=== PATIENT | male | born 1975 | race Caucasian/White ===

== ENCOUNTER 2024-04-02 17:08 | Inpatient (IN) | payer MEDICAID ==
[~2024-04-02] VITALS: Ht 167.6 cm; Wt 75.7 kg
[2024-04-02] MEDS: IV NS 0.9% 1,000 ML BAG IV ONE ×2 (17:30→18:00)
[2024-04-02 17:42] LABS: HEMOGLOBIN 11.1 g/dL (13.5-17.5); LYMPHOCYTES # (AUTO) 0.2 K/uL (0.8-4.8); MONOCYTES # (AUTO) 1.2 K/uL (0.1-1.30); NEUTROPHILS # (AUTO) 15.9 K/uL (1.8-8.9); WHITE BLOOD COUNT (AUTO) 17.4 K/uL (4.3-11.0)
[2024-04-02] MEDS ORDERED: OLANZAPINE 5 MG TABLET ONE (17:43)
[2024-04-02 17:48] LABS: BASOPHILS % (AUTO) 0.2 % (0.0-2.0); EOSINOPHILS # (AUTO) 0.1 K/uL (0.0-0.7); EOSINOPHILS % (AUTO) 0.6 % (0.0-6.0); HEMATOCRIT 32 % (39-51); LYMPHOCYTES % (AUTO) 1.3 % (20.0-44.0); MEAN CORPUSCULAR HEMOGLOBIN 27 PG (26.0-33.0); MEAN CORPUSCULAR HGB CONC 34 g/dl (31.0-36.0); MEAN CORPUSCULAR VOLUME 78 fL (80-96); MONOCYTES % (AUTO) 6.9 % (2.0-12.0); PLATELET COUNT (AUTO) 76 K/uL (150-450); RED BLOOD CELL COUNT(AUTO) 4.17 MIL/uL (4.5-6.0); RED CELL DISTRIBUTION WIDTH 18.9 % (11.5-15.0)
[2024-04-02 17:54] LABS: ALANINE AMINOTRANSFERASE 98 U/L (12-78); ALBUMIN 2.6 g/dL (3.4-5.0); ALCOHOL, BLOOD < 3 mg/dL (0-10); ALKALINE PHOSPHATASE 110 U/L (46-116); ASPARTATE AMINOTRANSFERASE 389 U/L (15-37); BILIRUBIN,DIRECT 2.1 mg/dL (0.0-0.2); BILIRUBIN,TOTAL 3.4 mg/dL (0.2-1.0); CALCIUM, SERUM 8.6 mg/dL (8.5-10.1); CARBON DIOXIDE 17 mmol/L (21-32); CREATININE 3.2 mg/dL (0.6-1.3); GLUCOSE 95 mg/dL (74-106); TOTAL PROTEIN, SERUM 8.5 g/dL (6.4-8.2); UREA NITROGEN, BLOOD 28 mg/dL (7-18)
[2024-04-02] MEDS: OLANZAPINE ZYDIS 5 MG TAB.RAPDIS PO ONE (18:00)
[2024-04-02 18:05] LABS: ACETAMINOPHEN <10 ug/ml (10-30); CHLORIDE 80 mmol/L (98-107); SALICYLATE < 2.3 mg/dL (2.8-20.0)
[2024-04-02 18:07] LABS: POTASSIUM 2.5 mmol/L (3.5-5.1); SODIUM SERUM 117 mmol/L (136-145)
[2024-04-02 18:08] LABS: ANISOCYTOSIS 1+; BAND % (MANUAL) 8 % (0.0-5.0); BASOPHILS % (MANUAL) 0 % (0.0-2.0); EOSINOPHILS % (MANUAL) 0 % (0-4); LYMPHOCYTES % (MANUAL) 3 % (16-48); METAMYELOCYTES % 1 % (0-0); MONOCYTES % (MANUAL) 7 % (0-11.0); MYELOCYTES % 1 % (0-0); NEUTROPHILS % (MANUAL) 80 (42-76); PLATELET ESTIMATE DECREASED; REACTIVE LYMPHOCYTES 0 % (0-0)
[2024-04-02] MEDS ORDERED: POTASSIUM CHLORIDE 20 MEQ TAB.PRT.SR PO ONE (18:21)
[2024-04-02] MEDS: POTASSIUM CHLORIDE 20 MEQ TAB.PRT.SR PO ONE (18:26)
[2024-04-02 18:32] LABS: APPEARANCE,URINE Cloudy (CLEAR); BILIRUBIN,URINE MODERATE (NEGATIVE); BLOOD, URINE Large Ery/uL (NEGATIVE); COLOR,URINE DARK YELLOW (YELLOW); KETONES,URINE 15 mg/dL (NEGATIVE); LEUKOCYTE ESTERASE ,URINE Negative (NEGATIVE); NITRITE, URINE Negative (NEGATIVE); PROTEIN,URINE >=300 mg/dl (NEGATIVE); UGLUCOSE Negative (NEGATIVE)
[2024-04-02] MEDS: IV PREMIX 0.45% NS + KCL 1,000 ML IV ONE (18:35)
[2024-04-02 18:46] LABS: ADD URINE CULTURE NO; AMPHETAMINE, URINE NEGATIVE (NEGATIVE); BACTERIA,URINE 1+ /HPF (None Seen); BARBITURATE, URINE NEGATIVE (NEGATIVE); BENZODIAZEPINE, URINE NEGATIVE (NEGATIVE); CANNABINOID, URINE NEGATIVE (NEGATIVE); COCCAINE, URINE NEGATIVE (NEGATIVE); OPIATE, URINE NEGATIVE (NEGATIVE); PHENCYCLIDINE SCREEN,URINE NEGATIVE (NEGATIVE); SQUAMOUS EPITHELIAL CELL,UR Few /HPF (None Seen); WBC,URINE 0-2 /HPF (0-3)
[2024-04-02 18:47] LABS: COARSE GRANULAR CASTS,URINE Moderate /LPF (None Seen)
[2024-04-02 18:48] LABS: URINE AMORPHOUS URATE Moderate /HPF (None Seen)
[2024-04-02] MEDS ORDERED: Z GUARD REMEDY 4 OZ OINT TP PRN (20:00)
[2024-04-02] MEDS ORDERED: ONDANSETRON HCL/PF 4 MG/2 ML VIAL IVP PRN (20:00)
[2024-04-02] MEDS ORDERED: LORAZEPAM INJ 2 MG/ML VIAL IV PRN (20:00)
[2024-04-02] MEDS ORDERED: MAGNESIUM HYDROXIDE 30 ML UDC PO PRN (20:00)
[2024-04-02] MEDS ORDERED: MAG HYDROX/AL HYDROX/SIMETH 30 ML UDC PO PRN (20:00)
[2024-04-03] VITALS (62 sets, daily range): BP systolic 47–163; BP diastolic 28–112; TEMP 98.1–102.9; O2SAT 86–100
[2024-04-03] MEDS: ACETAMINOPHEN 325 MG TABLET PO PRN (03:27)
[2024-04-03] MEDS: IV NS 0.9% 1,000 ML IV PRN (03:42)
[2024-04-03] MEDS: CEFTRIAXONE 1GM BAG (ER ONLY) 50 ML IV ONE (03:46)
[2024-04-03] MEDS: CEFTRIAXONE 1 G in IV D5W 50 ML IV SCH (03:49)
[2024-04-03] MEDS: ENOXAPARIN SODIUM 40 MG/0.4 ML DISP.SYRIN SQ SCH (04:04)
[2024-04-03] MEDS ORDERED: IV NS 0.9% 1,000 ML IV PRN (08:21)
[2024-04-03 08:36] LABS: CALCIUM, SERUM 7.3 mg/dL (8.5-10.1); CREATININE 3.7 mg/dL (0.6-1.3); MAGNESIUM 2.6 mg/dL (1.8-2.4); PHOSPHORUS 5.1 mg/dL (2.5-4.9)
[2024-04-03 08:37] LABS: EOSINOPHILS % (AUTO) 0.1 % (0.0-6.0); HEMATOCRIT 29 % (39-51); HEMOGLOBIN 9.9 g/dL (13.5-17.5); LYMPHOCYTES # (AUTO) 0.2 K/uL (0.8-4.8); LYMPHOCYTES % (AUTO) 2.2 % (20.0-44.0); MEAN CORPUSCULAR HEMOGLOBIN 27 PG (26.0-33.0); MEAN CORPUSCULAR HGB CONC 35 g/dl (31.0-36.0); MEAN CORPUSCULAR VOLUME 78 fL (80-96); MONOCYTES # (AUTO) 0.8 K/uL (0.1-1.30); MONOCYTES % (AUTO) 7.6 % (2.0-12.0); NEUTROPHILS # (AUTO) 9.3 K/uL (1.8-8.9); NEUTROPHILS % (AUTO) 90.1 % (43.0-81.0); PLATELET COUNT (AUTO) 52 K/uL (150-450); RED BLOOD CELL COUNT(AUTO) 3.66 MIL/uL (4.5-6.0); RED CELL DISTRIBUTION WIDTH 18.8 % (11.5-15.0); URIC ACID 13.6 mg/dL (2.6-7.2); WHITE BLOOD COUNT (AUTO) 10.3 K/uL (4.3-11.0)
[2024-04-03 09:03] LABS: POTASSIUM 2.6 mmol/L (3.5-5.1)
[2024-04-03] MEDS: PANTOPRAZOLE 40 MG VIAL IV SCH (09:28)
[2024-04-03] MEDS ORDERED: LORAZEPAM 1 MG TABLET PO PRN ×2 (09:30)
[2024-04-03] MEDS: POTASSIUM CHLORIDE 20 MEQ TAB.PRT.SR PO ONE (09:32)
[2024-04-03 10:24] LABS: BAND % (MANUAL) 1 % (0.0-5.0); LYMPHOCYTES % (MANUAL) 3 % (16-48); MONOCYTES % (MANUAL) 8 % (0-11.0); NEUTROPHILS % (MANUAL) 88 (42-76)
[2024-04-03 10:25] LABS: ANISOCYTOSIS 1+; PLATELET ESTIMATE DECREASED
[2024-04-03] MEDS ORDERED: IPRATROPIUM NEB FS 0.5 MG/2.5 ML AMPUL.NEB NEB PRN (12:00)
[2024-04-03] MEDS ORDERED: ALBUTEROL FS 2.5 MG/3 ML VIAL.NEB NEB PRN (12:00)
[2024-04-03] MEDS ORDERED: NOREPINEPHRINE 8 MG in IV D5W 242 ML IV PRN (12:30)
[2024-04-03] MEDS: NOREPINEPHRINE 8 MG in IV D5W 242 ML IV PRN (12:45)
[2024-04-03 13:09] LABS: CALCIUM, SERUM 8.2 mg/dL (8.5-10.1); CREATININE 4.8 mg/dL (0.6-1.3); POTASSIUM 3.4 mmol/L (3.5-5.1)
[2024-04-03] MEDS: CEFEPIME 1 GM in IV D5W 50 ML IV SCH (13:13)
[2024-04-03] MEDS: VANCOMYCIN 1 GM in IV D5W 250 ML IV ONE (13:35)
[2024-04-03] MEDS: FENTANYL CITRAT IV 2,500 MCG in IV NS 0.9% 200 ML IV PRN (13:38)
[2024-04-03] MEDS: IV LR 1000 ML 1,000 ML IV ONE (13:45)
[2024-04-03] MEDS ORDERED: EPINEPHRINE (1:10,000) SYRINGE 1 MG/10 ML DISP.SYRIN IVP ONE (13:47)
[2024-04-03 13:53] LABS: INR 1.51 (0.91-1.10); PROTHROMBIN TIME 15.6 SECS (9.2-11.1)
[2024-04-03] MEDS: ALBUTEROL FS 2.5 MG/3 ML VIAL.NEB NEB SCH (14:12)
[2024-04-03] MEDS: IPRATROPIUM NEB FS 0.5 MG/2.5 ML AMPUL.NEB NEB SCH (14:12)
[2024-04-03 14:40] LABS: ABG BASE EXCESS -15.4 mmol/L (-2.0-3.0); ABG OXYGEN SATURATION 97.3 % (94.0-98.0); ABG PCO2 33.5 mmHg (35.0-48.0); ABG PH 7.172 (7.350-7.450); ABG PO2 114.7 mmHg (83.0-108.0); ABG TOTAL HEMOGLOBIN 11.1 G/dL (13.5-17.5); COHb 0.3 % (0.5-1.5); MetHb 0.5 % (0.0-1.5); O2Hb 96.5 % (94.0-97.0); SITE, ABG RIGHT FEMORAL; VT, ABG 500 mL
[2024-04-03] MEDS ORDERED: Sodium Bicarbonate 150 MEQ in IV D5W 1,000 ML IV PRN (15:00)
[2024-04-03] MEDS: Sodium Bicarbonate 150 MEQ in IV D5W 1,000 ML IV SCH (15:33)
[2024-04-03] MEDS: PROPOFOL 100 ML IV PRN (17:35)
[2024-04-03] MEDS: ACETAMINOPHEN 650 MG/SUPP.RECT RC PRN (20:15)
[2024-04-03] MEDS: NOREPINEPHRINE 8MG/250ML RTU 250 ML IV ONE (20:25)
[2024-04-03 23:28] LABS: BASOPHILS # (AUTO) 0.1 K/uL (0.0-0.2); BASOPHILS % (AUTO) 0.5 % (0.0-2.0); EOSINOPHILS # (AUTO) 0.6 K/uL (0.0-0.7); EOSINOPHILS % (AUTO) 5.1 % (0.0-6.0); HEMATOCRIT 31 % (39-51); HEMOGLOBIN 10.2 g/dL (13.5-17.5); LYMPHOCYTES # (AUTO) 0.3 K/uL (0.8-4.8); MEAN CORPUSCULAR HEMOGLOBIN 26 PG (26.0-33.0); MEAN CORPUSCULAR HGB CONC 33 g/dl (31.0-36.0); MEAN CORPUSCULAR VOLUME 79 fL (80-96); MONOCYTES # (AUTO) 0.6 K/uL (0.1-1.30); MONOCYTES % (AUTO) 5.2 % (2.0-12.0); NEUTROPHILS # (AUTO) 9.8 K/uL (1.8-8.9); NEUTROPHILS % (AUTO) 86.2 % (43.0-81.0); PLATELET COUNT (AUTO) 59 K/uL (150-450); RED BLOOD CELL COUNT(AUTO) 3.91 MIL/uL (4.5-6.0); WHITE BLOOD COUNT (AUTO) 11.3 K/uL (4.3-11.0)
[2024-04-03 23:38] LABS: APPEARANCE,URINE CLOUDY (CLEAR); BILIRUBIN,URINE 1+ (NEGATIVE); BLOOD, URINE 3+ Ery/uL (NEGATIVE); COLOR,URINE DARK YELLOW (YELLOW); KETONES,URINE TRACE mg/dL (NEGATIVE); LEUKOCYTE ESTERASE ,URINE NEGATIVE (NEGATIVE); NITRITE, URINE NEGATIVE (NEGATIVE); PH,URINE 5.5 (5.0-8.0); PROTEIN,URINE 2+ mg/dl (NEGATIVE); UGLUCOSE TRACE mg/dL (NEGATIVE); UROBILINOGEN,URINE 0.2 EU/dL (0.2)
[2024-04-03 23:40] LABS: ALBUMIN 1.5 g/dL (3.4-5.0); BILIRUBIN,TOTAL 4.4 mg/dL (0.2-1.0); CREATININE 5.2 mg/dL (0.6-1.3); MAGNESIUM 2.2 mg/dL (1.8-2.4); PHOSPHORUS 6.4 mg/dL (2.5-4.9); POTASSIUM 3.1 mmol/L (3.5-5.1); TOTAL PROTEIN, SERUM 6.3 g/dL (6.4-8.2)
[2024-04-03 23:45] LABS: CALCIUM, SERUM 6.9 mg/dL (8.5-10.1)
[2024-04-03 23:51] LABS: CREATININE, URINE 195.3 MG/DL (30.0-125.0); URINE TOTAL PROTEIN 421.4 mg/dL (0-11.9)
[2024-04-03 23:57] LABS: ADD URINE CULTURE NO; BACTERIA,URINE Rare /HPF (None Seen); RBC,URINE 0-2 /HPF (0-2); SQUAMOUS EPITHELIAL CELL,UR Moderate /HPF (None Seen)
[2024-04-03 23:58] LABS: URINE AMORPHOUS URATE Moderate /HPF (None Seen)
[2024-04-03 23:59] LABS: FINE GRANULAR CASTS,URINE Few /LPF (None Seen)
[2024-04-04] VITALS (96 sets, daily range): BP systolic 98–120; BP diastolic 46–73; TEMP 97–99; O2SAT 97–100
[2024-04-04 00:43] LABS: EOSINOPHIL,URINE None Seen
[2024-04-04 01:51] LABS: LYMPHOCYTES % (MANUAL) 6 % (16-48); MONOCYTES % (MANUAL) 4 % (0-11.0); NEUTROPHILS % (MANUAL) 89 (42-76)
[2024-04-04 01:52] LABS: ANISOCYTOSIS 1+; HYPOCHROMASIA 1+; PLATELET ESTIMATE DECREASED; REACTIVE LYMPHOCYTES 1 % (0-0)
[2024-04-04 04:44] LABS: HEMOGLOBIN 9.4 g/dL (13.5-17.5); LYMPHOCYTES # (AUTO) 0.3 K/uL (0.8-4.8); RED CELL DISTRIBUTION WIDTH 19.3 % (11.5-15.0); WHITE BLOOD COUNT (AUTO) 12.8 K/uL (4.3-11.0)
[2024-04-04 05:00] LABS: BILIRUBIN,TOTAL 4.5 mg/dL (0.2-1.0); CALCIUM, SERUM 6.6 mg/dL (8.5-10.1); CREATININE 5.4 mg/dL (0.6-1.3); MAGNESIUM 2.3 mg/dL (1.8-2.4); PHOSPHORUS 7.2 mg/dL (2.5-4.9)
[2024-04-04 05:09] LABS: ALBUMIN 1.4 g/dL (3.4-5.0)
[2024-04-04 05:19] LABS: BASOPHILS % (AUTO) 0.2 % (0.0-2.0); EOSINOPHILS # (AUTO) 0.3 K/uL (0.0-0.7); EOSINOPHILS % (AUTO) 2.6 % (0.0-6.0); HEMATOCRIT 28 % (39-51); LYMPHOCYTES % (AUTO) 2.3 % (20.0-44.0); MEAN CORPUSCULAR HEMOGLOBIN 26 PG (26.0-33.0); MEAN CORPUSCULAR HGB CONC 34 g/dl (31.0-36.0); MEAN CORPUSCULAR VOLUME 77 fL (80-96); MONOCYTES # (AUTO) 0.9 K/uL (0.1-1.30); MONOCYTES % (AUTO) 7.1 % (2.0-12.0); NEUTROPHILS # (AUTO) 11.2 K/uL (1.8-8.9); NEUTROPHILS % (AUTO) 87.8 % (43.0-81.0); RED BLOOD CELL COUNT(AUTO) 3.58 MIL/uL (4.5-6.0)
[2024-04-04 05:24] LABS: PLATELET COUNT (AUTO) 47 K/uL (150-450)
[2024-04-04 05:57] LABS: ANISOCYTOSIS 1+; BAND % (MANUAL) 3 % (0.0-5.0); HYPOCHROMASIA 1+; LYMPHOCYTES % (MANUAL) 2 % (16-48); MONOCYTES % (MANUAL) 6 % (0-11.0); NEUTROPHILS % (MANUAL) 89 (42-76); PLATELET ESTIMATE DECREASED
[2024-04-04 08:48] LABS: ABG BASE EXCESS -8.8 mmol/L (-2.0-3.0); ABG PCO2 26.1 mmHg (35.0-48.0); ABG PH 7.378 (7.350-7.450); ABG PO2 201.7 mmHg (83.0-108.0); ABG TOTAL HEMOGLOBIN 10.5 G/dL (13.5-17.5); COHb 0.3 % (0.5-1.5); MetHb 0.2 % (0.0-1.5); O2Hb 98.5 % (94.0-97.0); SITE, ABG RIGHT RADIAL; VT, ABG 500 mL
[2024-04-04] MEDS: THIAMINE HCL 100 MG TABLET PO SCH (09:00)
[2024-04-04] MEDS ORDERED: HEPARIN SODIUM, PORCINE 5000 UNITS/1 ML VIAL SQ SCH (09:00)
[2024-04-04] MEDS: Sodium Bicarbonate 150 MEQ in IV D5W 1,000 ML IV SCH (09:09)
[2024-04-04] MEDS: PHENYLEPHRINE 50 MG in IV NS 0.9% 245 ML IV PRN (10:55)
[2024-04-04] MEDS ORDERED: VANCOMYCIN 750 MG in IV D5W 250 ML IV SCH (12:00)
[2024-04-04 21:41] LABS: HIV-1 p24 ANTIGEN NON REACTIVE (NONREACTIVE); HIV-1/2 ANTIBODY NON REACTIVE (NONREACTIVE)
[2024-04-05] VITALS (95 sets, daily range): BP systolic 71–119; BP diastolic 37–65; TEMP 98.9–102.3; O2SAT 91–100
[2024-04-05] MEDS: VANCOMYCIN POST DIALYSIS 500MG IV PRN (01:23)
[2024-04-05] MEDS ORDERED: NS 0.9% IV PRN (03:00)
[2024-04-05] MEDS ORDERED: FENTANYL CITRAT IV PRN (03:00)
[2024-04-05] MEDS: FENTANYL CITRAT IV PRN (03:10)
[2024-04-05] MEDS: NS 0.9% IV PRN (03:10)
[2024-04-05] MEDS: FENTANYL PF 100MCG/2ML AMPUL ONE ×2 (03:29→03:30)
[2024-04-05 04:56] LABS: BASOPHILS % (AUTO) 0.2 % (0.0-2.0); EOSINOPHILS # (AUTO) 0.3 K/uL (0.0-0.7); HEMATOCRIT 25 % (39-51); LYMPHOCYTES # (AUTO) 0.3 K/uL (0.8-4.8); MEAN CORPUSCULAR HEMOGLOBIN 27 PG (26.0-33.0); MEAN CORPUSCULAR HGB CONC 36 g/dl (31.0-36.0); MEAN CORPUSCULAR VOLUME 77 fL (80-96); MONOCYTES # (AUTO) 0.7 K/uL (0.1-1.30); MONOCYTES % (AUTO) 4.5 % (2.0-12.0); NEUTROPHILS # (AUTO) 13.4 K/uL (1.8-8.9); NEUTROPHILS % (AUTO) 91.3 % (43.0-81.0); RED CELL DISTRIBUTION WIDTH 19.5 % (11.5-15.0); WHITE BLOOD COUNT (AUTO) 14.7 K/uL (4.3-11.0)
[2024-04-05 05:01] LABS: PLATELET COUNT (AUTO) 41 K/uL (150-450)
[2024-04-05 05:05] LABS: CALCIUM, SERUM 6.1 mg/dL (8.5-10.1); CREATININE 3.9 mg/dL (0.6-1.3); POTASSIUM 3.1 mmol/L (3.5-5.1)
[2024-04-05 05:19] LABS: ANISOCYTOSIS 1+; EOSINOPHILS % (MANUAL) 2 % (0-4); HYPOCHROMASIA 1+; LYMPHOCYTES % (MANUAL) 5 % (16-48); MONOCYTES % (MANUAL) 1 % (0-11.0); NEUTROPHILS % (MANUAL) 92 (42-76); PLATELET ESTIMATE DECREASED
[2024-04-05 08:32] LABS: ABG BASE EXCESS 0.4 mmol/L (-2.0-3.0); ABG OXYGEN SATURATION 96.7 % (94.0-98.0); ABG PCO2 38.5 mmHg (35.0-48.0); ABG PH 7.425 (7.350-7.450); ABG TOTAL HEMOGLOBIN 10.1 G/dL (13.5-17.5); COHb 0.2 % (0.5-1.5); MetHb 0.5 % (0.0-1.5); SITE, ABG RIGHT RADIAL; VT, ABG 500 mL
[2024-04-05] MEDS ORDERED: PRECEDEX 400 MCG/100 ML BOTTLE 100 ML IV PRN (10:00)
[2024-04-05 11:10] LABS: PTH, INTACT 237 pg/mL (15-65)
[2024-04-05 13:13] LABS: ABG BASE EXCESS -2.3 mmol/L (-2.0-3.0); ABG OXYGEN SATURATION 89.1 % (94.0-98.0); ABG PCO2 70.7 mmHg (35.0-48.0); ABG PH 7.197 (7.350-7.450); ABG PO2 71.4 mmHg (83.0-108.0); ABG TOTAL HEMOGLOBIN 11.1 G/dL (13.5-17.5); COHb 0.3 % (0.5-1.5); MetHb 0.3 % (0.0-1.5); O2Hb 88.6 % (94.0-97.0); PEEP,BG 5 cm H2O; SITE, ABG RIGHT RADIAL; VT, ABG 400 mL
[2024-04-05] MEDS: IV NS 0.9% 250 ML IV PRN (13:35)
[2024-04-05] MEDS ORDERED: JEVITY 1.5 CAL LIQUID 1,000 ML BOTTLE GT PRN (14:00)
[2024-04-06] VITALS (46 sets, daily range): BP systolic 86–134; BP diastolic 42–102; TEMP 97.9–101.4; O2SAT 95–100
[2024-04-06 02:08] LABS: HEPATITIS A AB, IgM Negative (Negative); HEPATITIS A AB, TOTAL Positive (Negative); HEPATITIS B SURFACE AB Non Reactive (.)
[2024-04-06] MEDS: VANCOMYCIN 1 GM /D5W 250 ML PB IV ONE (05:37)
[2024-04-06 07:03] LABS: BASOPHILS % (AUTO) 0.2 % (0.0-2.0); EOSINOPHILS # (AUTO) 0.1 K/uL (0.0-0.7); EOSINOPHILS % (AUTO) 0.9 % (0.0-6.0); HEMATOCRIT 27 % (39-51); HEMOGLOBIN 9.4 g/dL (13.5-17.5); LYMPHOCYTES # (AUTO) 0.8 K/uL (0.8-4.8); LYMPHOCYTES % (AUTO) 5.2 % (20.0-44.0); MEAN CORPUSCULAR HEMOGLOBIN 27 PG (26.0-33.0); MEAN CORPUSCULAR HGB CONC 34 g/dl (31.0-36.0); MEAN CORPUSCULAR VOLUME 78 fL (80-96); MONOCYTES # (AUTO) 0.9 K/uL (0.1-1.30); MONOCYTES % (AUTO) 5.6 % (2.0-12.0); NEUTROPHILS # (AUTO) 14.3 K/uL (1.8-8.9); NEUTROPHILS % (AUTO) 88.1 % (43.0-81.0); PLATELET COUNT (AUTO) 62 K/uL (150-450); RED BLOOD CELL COUNT(AUTO) 3.52 MIL/uL (4.5-6.0); RED CELL DISTRIBUTION WIDTH 19.3 % (11.5-15.0); WHITE BLOOD COUNT (AUTO) 16.2 K/uL (4.3-11.0)
[2024-04-06 07:17] LABS: CALCIUM, SERUM 6.5 mg/dL (8.5-10.1); CREATININE 4.1 mg/dL (0.6-1.3); POTASSIUM 3.8 mmol/L (3.5-5.1)
[2024-04-06 08:53] LABS: ANISOCYTOSIS 2+; LYMPHOCYTES % (MANUAL) 6 % (16-48); MONOCYTES % (MANUAL) 6 % (0-11.0); NEUTROPHILS % (MANUAL) 88 (42-76); PLATELET ESTIMATE DECREASED; TARGET CELLS 1+
[2024-04-06 09:58] LABS: ABG BASE EXCESS 1.1 mmol/L (-2.0-3.0); ABG OXYGEN SATURATION 96.2 % (94.0-98.0); ABG PCO2 41.8 mmHg (35.0-48.0); ABG PH 7.409 (7.350-7.450); ABG PO2 89.4 mmHg (83.0-108.0); ABG TOTAL HEMOGLOBIN 10.5 G/dL (13.5-17.5); COHb 0.1 % (0.5-1.5); MetHb 0.2 % (0.0-1.5); O2Hb 95.9 % (94.0-97.0); PEEP,BG 5 cm H2O; SITE, ABG RIGHT RADIAL; VT, ABG 500 mL
[2024-04-06] MEDS: MANNITOL 20% IV ONE (18:22)
[2024-04-06] MEDS: IV MANNITOL 20% 500 ML in PREMIX 1 EA IV ONE (18:23)
[2024-04-07] VITALS (29 sets, daily range): BP systolic 79–145; BP diastolic 40–89; TEMP 98.2–102.8; O2SAT 92–100
[2024-04-07] MEDS ORDERED: MANNITOL IV SCH ×2 (01:00)
[2024-04-07] MEDS ORDERED: D5W IV SCH ×2 (01:00)
[2024-04-07] MEDS: IV MANNITOL 20% 250 ML in PREMIX 1 EA IV SCH (01:00)
[2024-04-07 04:10] LABS: BASOPHILS # (AUTO) 0.1 K/uL (0.0-0.2); BASOPHILS % (AUTO) 0.4 % (0.0-2.0); EOSINOPHILS # (AUTO) 0.1 K/uL (0.0-0.7); EOSINOPHILS % (AUTO) 0.8 % (0.0-6.0); HEMATOCRIT 27 % (39-51); HEMOGLOBIN 9.2 g/dL (13.5-17.5); LYMPHOCYTES # (AUTO) 0.5 K/uL (0.8-4.8); LYMPHOCYTES % (AUTO) 2.9 % (20.0-44.0); MEAN CORPUSCULAR HEMOGLOBIN 27 PG (26.0-33.0); MEAN CORPUSCULAR HGB CONC 35 g/dl (31.0-36.0); MEAN CORPUSCULAR VOLUME 77 fL (80-96); MONOCYTES # (AUTO) 1.1 K/uL (0.1-1.30); MONOCYTES % (AUTO) 6.1 % (2.0-12.0); NEUTROPHILS # (AUTO) 16.3 K/uL (1.8-8.9); NEUTROPHILS % (AUTO) 89.8 % (43.0-81.0); PLATELET COUNT (AUTO) 85 K/uL (150-450); RED BLOOD CELL COUNT(AUTO) 3.42 MIL/uL (4.5-6.0); RED CELL DISTRIBUTION WIDTH 19.8 % (11.5-15.0); WHITE BLOOD COUNT (AUTO) 18.1 K/uL (4.3-11.0)
[2024-04-07 04:33] LABS: CREATININE 5.7 mg/dL (0.6-1.3); MAGNESIUM 2.7 mg/dL (1.8-2.4); PHOSPHORUS 7.4 mg/dL (2.5-4.9); POTASSIUM 4.9 mmol/L (3.5-5.1)
[2024-04-07 05:36] LABS: ANISOCYTOSIS 1+; BASOPHILS % (MANUAL) 0 % (0.0-2.0); EOSINOPHILS % (MANUAL) 2 % (0-4); LYMPHOCYTES % (MANUAL) 3 % (16-48); MONOCYTES % (MANUAL) 5 % (0-11.0); NEUTROPHILS % (MANUAL) 90 (42-76); PLATELET ESTIMATE DECREASED; TARGET CELLS FEW
[2024-04-07 09:07] LABS: *SPE A/G RATIO 0.5 (0.7-1.7); *SPE ALBUMIN 1.8 g/dL (2.9-4.4); *SPE ALPHA-1-GLOBULIN 0.4 g/dL (0.0-0.4); *SPE ALPHA-2-GLOBULIN 0.9 g/dL (0.4-1.0); *SPE GLOBULIN, TOTAL 3.4 g/dL (2.2-3.9); *SPE M-SPIKE Not Observed g/dL (Not Observed); *SPE PROTEIN TOTAL 5.2 g/dL (6.0-8.5); *SPEGAMMA GLOBULIN 1.2 g/dL (0.4-1.8)
[2024-04-07] MEDS: ALBUMIN 25% 25 GM in PREMIX 1 EA IV PRN (15:18)
[2024-04-07] MEDS: LORAZEPAM INJ 2 MG/ML VIAL IV PRN (17:27)
[2024-04-07] MEDS: ACETAMINOPHEN 650 MG/20.3 ML UDC NG PRN (18:09)
[2024-04-08] VITALS (32 sets, daily range): BP systolic 89–212; BP diastolic 45–141; TEMP 96–101.8; O2SAT 95–98
[2024-04-08] MEDS: BLOOD SUGAR DIAGNOSTIC 1 EACH STRIP IN SCH (01:50)
[2024-04-08 03:57] LABS: BASOPHILS # (AUTO) 0.1 K/uL (0.0-0.2); BASOPHILS % (AUTO) 0.4 % (0.0-2.0); EOSINOPHILS # (AUTO) 0.4 K/uL (0.0-0.7); EOSINOPHILS % (AUTO) 2.3 % (0.0-6.0); HEMATOCRIT 26 % (39-51); HEMOGLOBIN 8.7 g/dL (13.5-17.5); LYMPHOCYTES # (AUTO) 0.9 K/uL (0.8-4.8); LYMPHOCYTES % (AUTO) 4.9 % (20.0-44.0); MEAN CORPUSCULAR HEMOGLOBIN 26 PG (26.0-33.0); MEAN CORPUSCULAR HGB CONC 34 g/dl (31.0-36.0); MEAN CORPUSCULAR VOLUME 78 fL (80-96); MONOCYTES # (AUTO) 0.6 K/uL (0.1-1.30); MONOCYTES % (AUTO) 3.2 % (2.0-12.0); NEUTROPHILS # (AUTO) 15.6 K/uL (1.8-8.9); NEUTROPHILS % (AUTO) 89.2 % (43.0-81.0); PLATELET COUNT (AUTO) 98 K/uL (150-450); RED CELL DISTRIBUTION WIDTH 19.7 % (11.5-15.0); WHITE BLOOD COUNT (AUTO) 17.5 K/uL (4.3-11.0)
[2024-04-08 03:59] LABS: CREATININE 6.5 mg/dL (0.6-1.3); MAGNESIUM 2.8 mg/dL (1.8-2.4); PHOSPHORUS 7.9 mg/dL (2.5-4.9); POTASSIUM 4.8 mmol/L (3.5-5.1)
[2024-04-08] MEDS: hydrALAZINE HCL IV 20 MG VIAL IV PRN (04:01)
[2024-04-08 04:05] LABS: CALCIUM, SERUM 5.6 mg/dL (8.5-10.1)
[2024-04-08] MEDS ORDERED: hydrALAZINE HCL IV 20 MG VIAL IV PRN (05:00)
[2024-04-08] MEDS ORDERED: CALCIUM CARBONATE 1,250 MG/5 ML UDC NG SCH (05:00)
[2024-04-08 05:04] LABS: BAND % (MANUAL) 3 % (0.0-5.0); LYMPHOCYTES % (MANUAL) 4 % (16-48); NEUTROPHILS % (MANUAL) 89 (42-76)
[2024-04-08 05:05] LABS: ANISOCYTOSIS 1+; BASOPHILS % (MANUAL) 0 % (0.0-2.0); EOSINOPHILS % (MANUAL) 2 % (0-4); MONOCYTES % (MANUAL) 2 % (0-11.0); PLATELET ESTIMATE DECREASED; REACTIVE LYMPHOCYTES 0 % (0-0); TARGET CELLS 2+
[2024-04-08 08:55] LABS: ABG BASE EXCESS -2.6 mmol/L (-2.0-3.0); ABG OXYGEN SATURATION 93.4 % (94.0-98.0); ABG PCO2 31.7 mmHg (35.0-48.0); ABG PH 7.438 (7.350-7.450); ABG PO2 75.6 mmHg (83.0-108.0); ABG TOTAL HEMOGLOBIN 10.2 G/dL (13.5-17.5); COHb 0.3 % (0.5-1.5); MetHb 0.1 % (0.0-1.5); PEEP,BG 5 cm H2O; SITE, ABG RIGHT FEMORAL; VT, ABG 500 mL
[2024-04-09] VITALS (41 sets, daily range): BP systolic 51–151; BP diastolic 33–84; TEMP 97–98.9; O2SAT 92–99
[2024-04-09 04:58] LABS: BASOPHILS # (AUTO) 0.1 K/uL (0.0-0.2); BASOPHILS % (AUTO) 0.5 % (0.0-2.0); EOSINOPHILS # (AUTO) 0.4 K/uL (0.0-0.7); EOSINOPHILS % (AUTO) 1.5 % (0.0-6.0); HEMATOCRIT 28 % (39-51); HEMOGLOBIN 9.3 g/dL (13.5-17.5); LYMPHOCYTES # (AUTO) 2.6 K/uL (0.8-4.8); MEAN CORPUSCULAR HEMOGLOBIN 26 PG (26.0-33.0); MEAN CORPUSCULAR HGB CONC 33 g/dl (31.0-36.0); MEAN CORPUSCULAR VOLUME 79 fL (80-96); MONOCYTES # (AUTO) 0.7 K/uL (0.1-1.30); MONOCYTES % (AUTO) 3.1 % (2.0-12.0); NEUTROPHILS # (AUTO) 19.7 K/uL (1.8-8.9); NEUTROPHILS % (AUTO) 83.9 % (43.0-81.0); PLATELET COUNT (AUTO) 123 K/uL (150-450); RED BLOOD CELL COUNT(AUTO) 3.56 MIL/uL (4.5-6.0); RED CELL DISTRIBUTION WIDTH 19.8 % (11.5-15.0); WHITE BLOOD COUNT (AUTO) 23.5 K/uL (4.3-11.0)
[2024-04-09 05:09] LABS: POTASSIUM 4.7 mmol/L (3.5-5.1)
[2024-04-09 05:34] LABS: CALCIUM, SERUM 5.6 mg/dL (8.5-10.1)
[2024-04-09 05:35] LABS: CREATININE 8.3 mg/dL (0.6-1.3)
[2024-04-09 06:02] LABS: BAND % (MANUAL) 3 % (0.0-5.0); EOSINOPHILS % (MANUAL) 3 % (0-4); LYMPHOCYTES % (MANUAL) 2 % (16-48); MONOCYTES % (MANUAL) 2 % (0-11.0); MYELOCYTES % 1 % (0-0); NEUTROPHILS % (MANUAL) 89 (42-76); PLATELET ESTIMATE DECREASED
[2024-04-09 06:03] LABS: TEAR DROP CELLS 1+
[2024-04-09] MEDS ORDERED: IV NS 0.9% 1,000 ML BAG IV SCH (11:00)
[2024-04-09] MEDS: NEPRO 1,000 ML BOTTLE GT SCH (16:35)
[2024-04-10] VITALS (98 sets, daily range): BP systolic 64–162; BP diastolic 36–71; TEMP 97.7–99; O2SAT 95–100
[2024-04-10 05:11] LABS: BASOPHILS # (AUTO) 0.1 K/uL (0.0-0.2); BASOPHILS % (AUTO) 0.6 % (0.0-2.0); EOSINOPHILS # (AUTO) 0.3 K/uL (0.0-0.7); HEMATOCRIT 27 % (39-51); HEMOGLOBIN 9.1 g/dL (13.5-17.5); LYMPHOCYTES # (AUTO) 3.9 K/uL (0.8-4.8); LYMPHOCYTES % (AUTO) 15.3 % (20.0-44.0); MEAN CORPUSCULAR HEMOGLOBIN 27 PG (26.0-33.0); MEAN CORPUSCULAR HGB CONC 34 g/dl (31.0-36.0); MEAN CORPUSCULAR VOLUME 79 fL (80-96); MONOCYTES # (AUTO) 0.8 K/uL (0.1-1.30); MONOCYTES % (AUTO) 3.1 % (2.0-12.0); NEUTROPHILS # (AUTO) 20.3 K/uL (1.8-8.9); PLATELET COUNT (AUTO) 152 K/uL (150-450); RED BLOOD CELL COUNT(AUTO) 3.37 MIL/uL (4.5-6.0); RED CELL DISTRIBUTION WIDTH 19.8 % (11.5-15.0); WHITE BLOOD COUNT (AUTO) 25.3 K/uL (4.3-11.0)
[2024-04-10 05:19] LABS: CALCIUM, SERUM 6.4 mg/dL (8.5-10.1); CREATININE 6.8 mg/dL (0.6-1.3); MAGNESIUM 2.9 mg/dL (1.8-2.4); PHOSPHORUS 7.9 mg/dL (2.5-4.9); POTASSIUM 3.3 mmol/L (3.5-5.1)
[2024-04-10 11:36] LABS: ANISOCYTOSIS 1+; EOSINOPHILS % (MANUAL) 1 % (0-4); LYMPHOCYTES % (MANUAL) 2 % (16-48); MONOCYTES % (MANUAL) 3 % (0-11.0); NEUTROPHILS % (MANUAL) 94 (42-76); PLATELET ESTIMATE ADEQUATE; TARGET CELLS 1+
[2024-04-10] MEDS: POTASSIUM CL. PREMIX PERIPHER. 50 ML IV SCH (12:20)
[2024-04-10] MEDS ORDERED: MAGNESIUM HYDROXIDE 30 ML UDC NG PRN (12:51)
[2024-04-10] MEDS ORDERED: MAG HYDROX/AL HYDROX/SIMETH 30 ML UDC NG PRN (12:51)
[2024-04-11] VITALS (96 sets, daily range): BP systolic 84–122; BP diastolic 35–53; TEMP 98.6–99.7; O2SAT 96–100
[2024-04-11 06:59] LABS: BASOPHILS # (AUTO) 0.1 K/uL (0.0-0.2); BASOPHILS % (AUTO) 0.3 % (0.0-2.0); EOSINOPHILS # (AUTO) 0.1 K/uL (0.0-0.7); EOSINOPHILS % (AUTO) 0.6 % (0.0-6.0); HEMATOCRIT 26 % (39-51); HEMOGLOBIN 8.5 g/dL (13.5-17.5); LYMPHOCYTES # (AUTO) 1.4 K/uL (0.8-4.8); LYMPHOCYTES % (AUTO) 6.1 % (20.0-44.0); MEAN CORPUSCULAR HEMOGLOBIN 26 PG (26.0-33.0); MEAN CORPUSCULAR HGB CONC 33 g/dl (31.0-36.0); MEAN CORPUSCULAR VOLUME 80 fL (80-96); MONOCYTES # (AUTO) 0.6 K/uL (0.1-1.30); MONOCYTES % (AUTO) 2.7 % (2.0-12.0); NEUTROPHILS # (AUTO) 20.6 K/uL (1.8-8.9); NEUTROPHILS % (AUTO) 90.3 % (43.0-81.0); PLATELET COUNT (AUTO) 151 K/uL (150-450); RED BLOOD CELL COUNT(AUTO) 3.25 MIL/uL (4.5-6.0); RED CELL DISTRIBUTION WIDTH 20.4 % (11.5-15.0); WHITE BLOOD COUNT (AUTO) 22.9 K/uL (4.3-11.0)
[2024-04-11 07:10] LABS: CALCIUM, SERUM 6.8 mg/dL (8.5-10.1); CREATININE 5.9 mg/dL (0.6-1.3); MAGNESIUM 2.6 mg/dL (1.8-2.4)
[2024-04-11] MEDS: THIAMINE HCL 100 MG TABLET NG SCH (08:08)
[2024-04-11 09:56] LABS: LYMPHOCYTES % (MANUAL) 3 % (16-48); MONOCYTES % (MANUAL) 3 % (0-11.0); NEUTROPHILS % (MANUAL) 94 (42-76)
[2024-04-11 09:57] LABS: ANISOCYTOSIS 1+; PLATELET ESTIMATE ADEQUATE; TARGET CELLS 2+
[2024-04-11] MEDS: NEPRO 1,000 ML BOTTLE NG SCH (19:28)
[2024-04-12] VITALS (91 sets, daily range): BP systolic 81–152; BP diastolic 37–61; TEMP 98.4–101.6; O2SAT 96–100
[2024-04-12 04:26] LABS: BASOPHILS % (AUTO) 0.1 % (0.0-2.0); EOSINOPHILS # (AUTO) 0.2 K/uL (0.0-0.7); EOSINOPHILS % (AUTO) 1.1 % (0.0-6.0); HEMATOCRIT 25 % (39-51); HEMOGLOBIN 8.5 g/dL (13.5-17.5); LYMPHOCYTES # (AUTO) 0.6 K/uL (0.8-4.8); LYMPHOCYTES % (AUTO) 2.8 % (20.0-44.0); MEAN CORPUSCULAR HEMOGLOBIN 27 PG (26.0-33.0); MEAN CORPUSCULAR HGB CONC 34 g/dl (31.0-36.0); MEAN CORPUSCULAR VOLUME 80 fL (80-96); MONOCYTES # (AUTO) 1.1 K/uL (0.1-1.30); NEUTROPHILS # (AUTO) 20.5 K/uL (1.8-8.9); PLATELET COUNT (AUTO) 173 K/uL (150-450); RED BLOOD CELL COUNT(AUTO) 3.13 MIL/uL (4.5-6.0); RED CELL DISTRIBUTION WIDTH 20.3 % (11.5-15.0); WHITE BLOOD COUNT (AUTO) 22.6 K/uL (4.3-11.0)
[2024-04-12 04:48] LABS: CALCIUM, SERUM 6.1 mg/dL (8.5-10.1); CREATININE 7.4 mg/dL (0.6-1.3); MAGNESIUM 2.7 mg/dL (1.8-2.4); POTASSIUM 4.7 mmol/L (3.5-5.1)
[2024-04-12 05:05] LABS: PHOSPHORUS 8.3 mg/dL (2.5-4.9)
[2024-04-12] MEDS: PANTOPRAZOLE 40 MG/PACK PACK NG SCH (08:31)
[2024-04-13] VITALS (96 sets, daily range): BP systolic 0–122; BP diastolic 34–96; TEMP 99–99.9; O2SAT 96–100
[2024-04-13 04:33] LABS: BASOPHILS # (AUTO) 0.1 K/uL (0.0-0.2); BASOPHILS % (AUTO) 0.2 % (0.0-2.0); EOSINOPHILS # (AUTO) 0.3 K/uL (0.0-0.7); EOSINOPHILS % (AUTO) 1.5 % (0.0-6.0); HEMATOCRIT 26 % (39-51); HEMOGLOBIN 8.4 g/dL (13.5-17.5); LYMPHOCYTES % (AUTO) 4.1 % (20.0-44.0); MEAN CORPUSCULAR HEMOGLOBIN 26 PG (26.0-33.0); MEAN CORPUSCULAR HGB CONC 33 g/dl (31.0-36.0); MEAN CORPUSCULAR VOLUME 80 fL (80-96); MONOCYTES # (AUTO) 1.4 K/uL (0.1-1.30); NEUTROPHILS # (AUTO) 20.9 K/uL (1.8-8.9); NEUTROPHILS % (AUTO) 88.2 % (43.0-81.0); PLATELET COUNT (AUTO) 213 K/uL (150-450); RED BLOOD CELL COUNT(AUTO) 3.18 MIL/uL (4.5-6.0); RED CELL DISTRIBUTION WIDTH 20.3 % (11.5-15.0); WHITE BLOOD COUNT (AUTO) 23.7 K/uL (4.3-11.0)
[2024-04-13 05:18] LABS: BILIRUBIN,DIRECT 12.7 mg/dL (0.0-0.2); BILIRUBIN,TOTAL 15.7 mg/dL (0.2-1.0); CALCIUM, SERUM 6.8 mg/dL (8.5-10.1); CREATININE 5.8 mg/dL (0.6-1.3); MAGNESIUM 2.4 mg/dL (1.8-2.4); PHOSPHORUS 7.8 mg/dL (2.5-4.9); POTASSIUM 4.1 mmol/L (3.5-5.1); TOTAL PROTEIN, SERUM 7.3 g/dL (6.4-8.2)
[2024-04-13 06:09] LABS: ALBUMIN 1.2 g/dL (3.4-5.0)
[2024-04-13] MEDS: PHENYLEPHRINE 10 MG/ML VIAL ONE (06:52)
[2024-04-13 06:54] LABS: EOSINOPHILS % (MANUAL) 1 % (0-4); LYMPHOCYTES % (MANUAL) 3 % (16-48); MONOCYTES % (MANUAL) 7 % (0-11.0); NEUTROPHILS % (MANUAL) 89 (42-76); PLATELET ESTIMATE ADEQUATE
[2024-04-13 06:55] LABS: ANISOCYTOSIS 1+; HYPOCHROMASIA 1+; TARGET CELLS 2+
[2024-04-13] MEDS: VANCOMYCIN HCL 125 MG/2.5 ML ORAL.SUSP NG SCH (12:11)
[2024-04-13] MEDS: VANCOMYCIN 1 GM in IV D5W 250ml IV ONE (13:16)
[2024-04-13] MEDS: METRONIDAZOLE 500 MG TABLET NG SCH (13:20)
[2024-04-13] MEDS: PHENYLEPHRINE 100 MG in IV NS 0.9% 240 ML IV PRN (15:22)
[2024-04-13] MEDS: DEXTROSE 50%-WATER 50 ML DISP.SYRIN IV PRN (17:20)
[2024-04-14] VITALS (94 sets, daily range): BP systolic 71–166; BP diastolic 42–102; TEMP 98.4–100.6; O2SAT 95–100
[2024-04-14 06:58] LABS: BASOPHILS # (AUTO) 0.1 K/uL (0.0-0.2); BASOPHILS % (AUTO) 0.6 % (0.0-2.0); EOSINOPHILS # (AUTO) 0.4 K/uL (0.0-0.7); EOSINOPHILS % (AUTO) 1.9 % (0.0-6.0); HEMATOCRIT 26 % (39-51); HEMOGLOBIN 8.6 g/dL (13.5-17.5); LYMPHOCYTES # (AUTO) 0.7 K/uL (0.8-4.8); LYMPHOCYTES % (AUTO) 3.6 % (20.0-44.0); MEAN CORPUSCULAR HEMOGLOBIN 27 PG (26.0-33.0); MEAN CORPUSCULAR HGB CONC 33 g/dl (31.0-36.0); MEAN CORPUSCULAR VOLUME 82 fL (80-96); MONOCYTES # (AUTO) 1.3 K/uL (0.1-1.30); MONOCYTES % (AUTO) 6.5 % (2.0-12.0); NEUTROPHILS # (AUTO) 16.8 K/uL (1.8-8.9); NEUTROPHILS % (AUTO) 87.4 % (43.0-81.0); PLATELET COUNT (AUTO) 225 K/uL (150-450); RED CELL DISTRIBUTION WIDTH 21.1 % (11.5-15.0); WHITE BLOOD COUNT (AUTO) 19.2 K/uL (4.3-11.0)
[2024-04-14 07:30] LABS: BILIRUBIN,DIRECT 13.8 mg/dL (0.0-0.2); BILIRUBIN,TOTAL 17.1 mg/dL (0.2-1.0); CALCIUM, SERUM 6.4 mg/dL (8.5-10.1); CREATININE 6.7 mg/dL (0.6-1.3); MAGNESIUM 2.5 mg/dL (1.8-2.4); POTASSIUM 4.3 mmol/L (3.5-5.1); TOTAL PROTEIN, SERUM 6.5 g/dL (6.4-8.2)
[2024-04-14 07:53] LABS: ALBUMIN 1.2 g/dL (3.4-5.0); PHOSPHORUS 8.8 mg/dL (2.5-4.9)
[2024-04-14 09:08] LABS: HEPATITIS B CORE AB, IgM Negative (Negative); HEPATITIS B CORE AB, TOTAL Negative (Negative)
[2024-04-14 10:09] LABS: EOSINOPHILS % (MANUAL) 2 % (0-4); LYMPHOCYTES % (MANUAL) 6 % (16-48); MONOCYTES % (MANUAL) 5 % (0-11.0); MYELOCYTES % 2 % (0-0)
[2024-04-14 10:10] LABS: ANISOCYTOSIS 1+; BAND % (MANUAL) 2 % (0.0-5.0); NEUTROPHILS % (MANUAL) 83 (42-76); PLATELET ESTIMATE ADEQUATE
[2024-04-14 10:13] LABS: TARGET CELLS 1+
[2024-04-14 10:50] LABS: INR 1.79 (0.91-1.10); PROTHROMBIN TIME 18.3 SECS (9.2-11.1)
[2024-04-14] MEDS: NOREPINEPHRINE 32 MG in IV NS 0.9% 218 ML IV PRN ×2 (12:10→13:16)
[2024-04-14] MEDS ORDERED: NOREPINEPHRINE 32 MG in IV NS 0.9% 218 ML IV PRN (13:00)
[2024-04-14] MEDS: prednisoLONE 5 MG/5 ML UDC NG SCH (13:49)
[2024-04-15] VITALS (96 sets, daily range): BP systolic 74–125; BP diastolic 41–70; TEMP 98.7–101.1; O2SAT 95–100
[2024-04-15 05:08] LABS: BASOPHILS # (AUTO) 0.1 K/uL (0.0-0.2); BASOPHILS % (AUTO) 0.3 % (0.0-2.0); EOSINOPHILS # (AUTO) 0.1 K/uL (0.0-0.7); EOSINOPHILS % (AUTO) 0.4 % (0.0-6.0); HEMATOCRIT 27 % (39-51); LYMPHOCYTES # (AUTO) 0.4 K/uL (0.8-4.8); LYMPHOCYTES % (AUTO) 1.8 % (20.0-44.0); MEAN CORPUSCULAR HEMOGLOBIN 27 PG (26.0-33.0); MEAN CORPUSCULAR HGB CONC 33 g/dl (31.0-36.0); MEAN CORPUSCULAR VOLUME 81 fL (80-96); MONOCYTES # (AUTO) 0.7 K/uL (0.1-1.30); MONOCYTES % (AUTO) 3.4 % (2.0-12.0); NEUTROPHILS # (AUTO) 20.3 K/uL (1.8-8.9); NEUTROPHILS % (AUTO) 94.1 % (43.0-81.0); PLATELET COUNT (AUTO) 209 K/uL (150-450); RED BLOOD CELL COUNT(AUTO) 3.31 MIL/uL (4.5-6.0); RED CELL DISTRIBUTION WIDTH 20.9 % (11.5-15.0); WHITE BLOOD COUNT (AUTO) 21.6 K/uL (4.3-11.0)
[2024-04-15 05:42] LABS: BILIRUBIN,DIRECT 13.5 mg/dL (0.0-0.2); BILIRUBIN,TOTAL 16.8 mg/dL (0.2-1.0); CALCIUM, SERUM 6.6 mg/dL (8.5-10.1); CREATININE 5.6 mg/dL (0.6-1.3); MAGNESIUM 2.3 mg/dL (1.8-2.4); POTASSIUM 5.1 mmol/L (3.5-5.1); TOTAL PROTEIN, SERUM 6.8 g/dL (6.4-8.2)
[2024-04-15 05:45] LABS: PHOSPHORUS 8.1 mg/dL (2.5-4.9)
[2024-04-15 05:46] LABS: ALBUMIN 1.2 g/dL (3.4-5.0)
[2024-04-15] MEDS: MEROPENEM 500 MG in IV NS 0.9% 50 ML IV SCH (13:05)
[2024-04-15] MEDS: VANCOMYCIN POST DIALYSIS 500MG IV PRN (22:00)
[2024-04-16] VITALS (95 sets, daily range): BP systolic 71–143; BP diastolic 35–89; TEMP 98.5–101.9; O2SAT 98–100
[2024-04-16 04:50] LABS: BASOPHILS % (AUTO) 0.1 % (0.0-2.0); HEMATOCRIT 25 % (39-51); HEMOGLOBIN 8.3 g/dL (13.5-17.5); LYMPHOCYTES # (AUTO) 0.7 K/uL (0.8-4.8); MEAN CORPUSCULAR HEMOGLOBIN 27 PG (26.0-33.0); MEAN CORPUSCULAR HGB CONC 33 g/dl (31.0-36.0); MEAN CORPUSCULAR VOLUME 81 fL (80-96); MONOCYTES # (AUTO) 2.3 K/uL (0.1-1.30); MONOCYTES % (AUTO) 9.5 % (2.0-12.0); NEUTROPHILS # (AUTO) 20.8 K/uL (1.8-8.9); NEUTROPHILS % (AUTO) 87.4 % (43.0-81.0); PLATELET COUNT (AUTO) 213 K/uL (150-450); RED CELL DISTRIBUTION WIDTH 22.7 % (11.5-15.0); WHITE BLOOD COUNT (AUTO) 23.8 K/uL (4.3-11.0)
[2024-04-16 05:02] LABS: BILIRUBIN,DIRECT 13.4 mg/dL (0.0-0.2); CREATININE 4.6 mg/dL (0.6-1.3); MAGNESIUM 2.2 mg/dL (1.8-2.4); PHOSPHORUS 6.9 mg/dL (2.5-4.9); POTASSIUM 3.6 mmol/L (3.5-5.1); TOTAL PROTEIN, SERUM 6.8 g/dL (6.4-8.2)
[2024-04-16 05:05] LABS: ALBUMIN 1.1 g/dL (3.4-5.0)
[2024-04-16 06:47] LABS: ANISOCYTOSIS 1+; BASOPHILS % (MANUAL) 0 % (0.0-2.0); EOSINOPHILS % (MANUAL) 0 % (0-4); LYMPHOCYTES % (MANUAL) 4 % (16-48); MONOCYTES % (MANUAL) 7 % (0-11.0); NEUTROPHILS % (MANUAL) 89 (42-76); PLATELET ESTIMATE ADEQUATE; TARGET CELLS 1+
[2024-04-17] VITALS (69 sets, daily range): BP systolic 70–150; BP diastolic 43–95; TEMP 98.3–98.8; O2SAT 97–100
[2024-04-17 04:56] LABS: BASOPHILS % (AUTO) 0.2 % (0.0-2.0); EOSINOPHILS # (AUTO) 0.2 K/uL (0.0-0.7); EOSINOPHILS % (AUTO) 1.3 % (0.0-6.0); HEMATOCRIT 23 % (39-51); HEMOGLOBIN 7.7 g/dL (13.5-17.5); LYMPHOCYTES # (AUTO) 0.6 K/uL (0.8-4.8); LYMPHOCYTES % (AUTO) 4.2 % (20.0-44.0); MEAN CORPUSCULAR HEMOGLOBIN 27 PG (26.0-33.0); MEAN CORPUSCULAR HGB CONC 33 g/dl (31.0-36.0); MEAN CORPUSCULAR VOLUME 82 fL (80-96); MONOCYTES # (AUTO) 1.5 K/uL (0.1-1.30); MONOCYTES % (AUTO) 9.9 % (2.0-12.0); NEUTROPHILS # (AUTO) 12.5 K/uL (1.8-8.9); NEUTROPHILS % (AUTO) 84.4 % (43.0-81.0); PLATELET COUNT (AUTO) 146 K/uL (150-450); RED BLOOD CELL COUNT(AUTO) 2.84 MIL/uL (4.5-6.0); RED CELL DISTRIBUTION WIDTH 22.8 % (11.5-15.0); WHITE BLOOD COUNT (AUTO) 14.8 K/uL (4.3-11.0)
[2024-04-17 05:17] LABS: CALCIUM, SERUM 7.2 mg/dL (8.5-10.1); CREATININE 3.6 mg/dL (0.6-1.3); MAGNESIUM 2.2 mg/dL (1.8-2.4); PHOSPHORUS 5.1 mg/dL (2.5-4.9); POTASSIUM 3.3 mmol/L (3.5-5.1); TOTAL PROTEIN, SERUM 6.4 g/dL (6.4-8.2)
[2024-04-17 05:19] LABS: ALBUMIN 1.1 g/dL (3.4-5.0)
[2024-04-17 06:32] LABS: LYMPHOCYTES % (MANUAL) 4 % (16-48); MONOCYTES % (MANUAL) 5 % (0-11.0); NEUTROPHILS % (MANUAL) 89 (42-76)
[2024-04-17 06:33] LABS: ANISOCYTOSIS 1+; PLATELET ESTIMATE DECREASED; STOMATOCYTES 1+; TARGET CELLS 2+
[2024-04-17 06:34] LABS: EOSINOPHILS % (MANUAL) 2 % (0-4)
[2024-04-17] MEDS: AMANTADINE HCL 100 MG CAPSULE GT SCH (11:36)
[2024-04-17] MEDS: MORPHINE SULFATE PF DRIP 100 MG in IV D5W 96 ML IV PRN (15:29)
[2024-04-17] MEDS ORDERED: DC PROPOFOL WHEN EXTUBATED XX PRN (17:00)
== END 2024-04-17 20:53 | DRG 469 ==
LOC: ER 17:15 → TELE-TD 22:59 → ICU 04-03 11:27
PROVIDERS: ADMIT Nurse Practitioner Family
PROC: 5A1955Z Respiratory Ventilation, Greater than 96 Consecutive Hours (ICD-10-PCS; principal; 2024-04-03)
PROC: 0BH18EZ Insertion of Endotracheal Airway into Trachea, Via Natural or Artificial Opening Endoscopic (ICD-10-PCS; 2024-04-03)
PROC: 5A12012 Performance of Cardiac Output, Single, Manual (ICD-10-PCS; 2024-04-03)
PROC: 02H633Z Insertion of Infusion Device into Right Atrium, Percutaneous Approach (ICD-10-PCS; 2024-04-04)
PROC: B548ZZA Ultrasonography of Superior Vena Cava, Guidance (ICD-10-PCS; 2024-04-04)
PROC: 02HV33Z Insertion of Infusion Device into Superior Vena Cava, Percutaneous Approach (ICD-10-PCS; 2024-04-04)
PROC: B548ZZA Ultrasonography of Superior Vena Cava, Guidance (ICD-10-PCS; 2024-04-04)
PROC: 5A1D70Z Performance of Urinary Filtration, Intermittent, Less than 6 Hours Per Day (ICD-10-PCS; 2024-04-04)
DX: N17.0 Acute kidney failure with tubular necrosis (principal); I46.9 Cardiac arrest, cause unspecified; G93.6 Cerebral edema; J96.01 Acute respiratory failure with hypoxia; J69.0 Pneumonitis due to inhalation of food and vomit; A41.9 Sepsis, unspecified organism; R65.21 Severe sepsis with septic shock; G93.41 Metabolic encephalopathy; Z51.5 Encounter for palliative care; K72.90 Hepatic failure, unspecified without coma; E43 Unspecified severe protein-calorie malnutrition; G93.1 Anoxic brain damage, not elsewhere classified; E46 Unspecified protein-calorie malnutrition; D63.8 Anemia in other chronic diseases classified elsewhere; E83.39 Other disorders of phosphorus metabolism; D69.6 Thrombocytopenia, unspecified; E87.1 Hypo-osmolality and hyponatremia; M62.82 Rhabdomyolysis; E86.0 Dehydration; E87.6 Hypokalemia; E66.01 Morbid (severe) obesity due to excess calories; E83.41 Hypermagnesemia; E83.51 Hypocalcemia; M89.8X9 Other specified disorders of bone, unspecified site; R74.01 Elevation of levels of liver transaminase levels; E88.09 Other disorders of plasma-protein metabolism, not elsewhere classified; N39.0 Urinary tract infection, site not specified; Z59.00 Homelessness unspecified; F10.129 Alcohol abuse with intoxication, unspecified; Y90.0 Blood alcohol level of less than 20 mg/100 ml; E51.2 Wernicke's encephalopathy; E80.6 Other disorders of bilirubin metabolism; F15.10 Other stimulant abuse, uncomplicated; F10.139 Alcohol abuse with withdrawal, unspecified; E16.2 Hypoglycemia, unspecified; N18.9 Chronic kidney disease, unspecified; S60.822A Blister (nonthermal) of left wrist, initial encounter; S60.821A Blister (nonthermal) of right wrist, initial encounter; X58.XXXA Exposure to other specified factors, initial encounter; Y93.9 Activity, unspecified; Y92.89 Other specified places as the place of occurrence of the external cause; F19.10 Other psychoactive substance abuse, uncomplicated; K76.0 Fatty (change of) liver, not elsewhere classified
CPT/HCPCS: 31720; 36415; 36569; 36600; 70450-TC; 71045-TC; 76700-TC; 80048-TC; 80053-TC; 80076-TC; 80202-TC; 81001; 82040-TC; 82533; 82550-TC; 82553; 82570-TC; 82803-TC; 82962-TC; 83605-TC; 83690-TC; 83735-TC; 83935-TC; 83970; 84100-TC; 84155; 84165; 84300-TC; 84439-TC; 84443-TC; 84478-TC; 84550-TC; 85025-TC; 85610-TC; 85730-TC; 86704; 86705; 86706; 86709; 86709-TC; 86803; 87040-TC; 87081-TC; 87086-TC; 87340; 87806; 87899; 90935-TC; 93307-TC; 94002-TC; 94003-TC; 94799-TC; 95819-TC; 98960; 99082-TC; A4216; A4217; A4223; A6253; A6403; G0378; G0480; J0171; J0360; J0692; J0696; J1644; J1650; J2060; J2150; J2185; J2274; J2470; J3010; J3370; J3371; J3480; J3490; J7030; J7042; J7050; J7060; J7070; J7120; J7510; P9047